=== PATIENT | female | born 1945 | race Caucasian/White ===

== ENCOUNTER → 2018-08-19 | Outpatient (CLI) | payer OTHER ==
[~2018-08-19] MED LIST: AMITRIPTYLINE H25 MG PO; DAILY VALUE1 EACH PO; LYRICA50 MG PO; NEXIUM40 MG/PACK PO; ZYRTEC10 M3 PO
== END | disposition home or self-care (01) ==
LOC: NUCLEAR 13:30
DX: M81.0 Age-related osteoporosis without current pathological fracture (principal)

== ENCOUNTER 2020-08-20 13:05 | Outpatient (CLI) | payer OTHER | END 2020-08-20 13:17 | disposition home or self-care (01) | LOC: NUCLEAR 13:05 | PROVIDERS: ATTEND Internal Medicine Cardiovascular Disease | DX: M81.0 Age-related osteoporosis without current pathological fracture (principal) ==

== ENCOUNTER 2020-09-05 10:50 | Outpatient (CLI) | payer OTHER | END 2020-09-05 11:03 | disposition home or self-care (01) | LOC: RAD 10:50 | PROVIDERS: ATTEND Internal Medicine Cardiovascular Disease | DX: M75.52 Bursitis of left shoulder (principal); M75.22 Bicipital tendinitis, left shoulder; M12.89 Other specific arthropathies, not elsewhere classified, multiple sites ==

== ENCOUNTER 2021-08-22 11:08 | Outpatient (CLI) | payer OTHER | END 2021-08-22 11:12 | disposition home or self-care (01) | LOC: NUCLEAR 11:08 | PROVIDERS: ATTEND Internal Medicine Cardiovascular Disease | DX: G30.9 Alzheimer's disease, unspecified (principal) | CPT/HCPCS: 78803; A9557 ==

== ENCOUNTER 2021-12-10 07:50 | Outpatient (CLI) | payer OTHER | END 2021-12-10 07:51 | disposition home or self-care (01) | LOC: NUCLEAR 07:50 | PROVIDERS: ATTEND Internal Medicine Cardiovascular Disease | DX: G31.01 Pick's disease (principal); F03.90 Unspecified dementia, unspecified severity, without behavioral disturbance, psychotic disturbance, mood disturbance, and anxiety | CPT/HCPCS: 78814; A9552 ==